=== PATIENT | female | born 1950 | race Two or more races ===

== ENCOUNTER → 2017-02-04 | Outpatient (RCR) | payer OTHER ==
[~2017-02-04] MED LIST: CYCLOBENZAPRINE10 MG ORAL; IBUPROFEN600 MG ORAL; NKM
== END | disposition home or self-care (01) ==
LOC: PTY 01-06 13:14
DX: M94.261 Chondromalacia, right knee (principal); M47.26 Other spondylosis with radiculopathy, lumbar region; M19.011 Primary osteoarthritis, right shoulder; M94.211 Chondromalacia, right shoulder; M17.11 Unilateral primary osteoarthritis, right knee; M75.21 Bicipital tendinitis, right shoulder
CPT/HCPCS: 97035; 97110; 97161; G0283

== ENCOUNTER 2017-02-11 13:35 | Outpatient (RCR) | payer OTHER | END 2017-03-06 | disposition home or self-care (01) | LOC: PTY 13:35 | DX: M94.261 Chondromalacia, right knee (principal); M47.26 Other spondylosis with radiculopathy, lumbar region | CPT/HCPCS: 97035; 97110; G0283 ==